=== PATIENT | male | born 1970 | race Caucasian/White ===

== ENCOUNTER 2019-11-24 00:48 | Day surgery (SDC) | payer BC, SELFPAY ==
[2019-11-17 11:38] VITALS: BMI 26.4
--- NOTE | 2019-11-24 07:52 | WPDANESEPPF ---
Anes - Initial Pre Proc Eval Procedure: Operation Date: 11/24/19 09:00 Proposed Procedures p Colonoscopy - Marc Stroud MD Date/Time: 11/24/19 07:52 Surgeon: Marc Stroud MD Pre Op Diagnosis: Rectal pain, Rectal Bleeding Patient Data Age: 49 Gender: M Height: 1.8 m Weight: 86 kg Allergies Allergy/AdvReac Type Severity Reaction Status Date / Time Penicillins Allergy Intermediate HIVES Verified 11/17/19 11:37 Home Medications Medication Instructions Recorded Confirmed Type citalopram 10 mg tablet 10 mg PO DAILY #90 tablet 10/02/19 11/17/19 Rx allopurinol 150 mg PO DAILY 11/17/19 11/17/19 History aspirin 81 mg PO DAILY 11/17/19 11/17/19 History atorvastatin 80 mg PO DAILY 11/17/19 11/17/19 History metoprolol succinate 50 mg PO DAILY 11/17/19 11/17/19 History Patient hx anesthesia problems: none Family hx anesthesia problems: none PMFSH Past Medical History Medical History (Updated 11/24/19 @ 07:55 by Zain Lyle MD) Anxiety CAD (coronary artery disease) Gout HTN (hypertension) Hx of myocardial infarction JANUARY 2015 Hypercholesterolemia Alejandra-Foster tear 2016 Overweight (BMI 25.0-29.9) Surgical History Surgical History (Updated 11/24/19 @ 07:55 by Zain Lyle MD) Hx of coronary artery bypass graft JANUARY 2015 HAD CABG X4 Social History Social History Smoking status: Never smoker Alcohol intake: current Anes - Eval Final PreProcedure Day of Procedure 11/24/19 07:52 Patient weight: overweight Heart: regular rate and rhythm Lungs: clear to auscultation and normal air movement Airway: Mallampati scale class II Neurological: alert and oriented Last oral intake: >/= 8 hours ASA classification: III Emergent: no Anesthetic plan: proceed Anesthesia type and monitoring: general GIVS Informed Consent: The patient's anesthetic plan and its attendant risks and benefits were discussed with the patient/family/POA. Questions were solicited and answers provided to the satisfaction of the patient/family/POA.
[2019-11-24] MEDS: LACTATED RINGERS 1,000 ML 150 ML IV CONT (08:05)
[2019-11-24 08:08] VITALS: BMI 26.6
[2019-11-24 08:09] VITALS: BP 143/88; PULSE 72; RESP 20; TEMP 36.7; O2SAT 98
[2019-11-24 09:06] VITALS: BP 105/68; PULSE 68; RESP 20; O2SAT 98
[2019-11-24 09:16] VITALS: BP 101/66; PULSE 67; RESP 20; O2SAT 98
[2019-11-24 09:26] VITALS: BP 110/75; PULSE 63; RESP 20; O2SAT 98
[2019-11-24 09:36] VITALS: BP 125/68; PULSE 68; RESP 20; O2SAT 100
--- NOTE | 2019-12-08 14:19 | P.CONGI_ITS ---
Assessment and Plan Additional Plan This is a 49-year-old white male patient seen in evaluation at the request of Dr. Frausto. Patient notes rectal irritation over the last 1 year. States it feels sore. His bowel habits are regular. He notes this discomfort at the rectal area rather constantly. He will occasionally notice bright red blood per rectum. He has tried suppositories with no relief of symptoms. Past medical history significant for anxiety, atherosclerotic heart disease, gout, hypertension, hypercholesterolemia, he has previously had a Alejandra-Foster tear. Previous surgery includes coronary artery bypass grafting Social history is significant for routine alcohol intake. Current medications include allopurinol, atorvastatin, citalopram, and metoprolol. Patient reports allergy to penicillins. Physical exam reveals patient to be alert. Vital signs stable. HEENT exam unremarkable. Lungs are clear to auscultation and percussion. Heart is without murmur or extra sounds. Abdominal exam bowel sounds are present soft nontender with no hepatosplenomegaly. Digital external rectal exam is normal. Impression: 1.rectal pain. 2. Rectal bleeding Plan is for colonoscopy to evaluate this more thoroughly. Date of original consultation 11/08/2019 GI Consult Note Consult date/time: 12/08/19 14:19 HPI: Mayito Mejia is a 49 year old male [facility] Past Medical History Medical History (Updated 11/24/19 @ 07:55 by Zain Lyle MD) Anxiety CAD (coronary artery disease) Gout HTN (hypertension) Hx of myocardial infarction JANUARY 2015 Hypercholesterolemia Alejandra-Foster tear 2016 Overweight (BMI 25.0-29.9) Surgical History Surgical History (Updated 11/24/19 @ 07:55 by Zain Lyle MD) Hx of coronary artery bypass graft JANUARY 2015 HAD CABG X4 Social History Social History Smoking status: Never smoker Alcohol intake: current Meds Home Medications and Allergies Home Medications Medication Instructions Recorded Confirmed Type citalopram 10 mg tablet 10 mg PO DAILY #90 tablet 10/02/19 11/24/19 Rx allopurinol 150 mg PO DAILY 11/17/19 11/24/19 History aspirin 81 mg PO DAILY 11/17/19 11/24/19 History atorvastatin 80 mg PO DAILY 11/17/19 11/24/19 History metoprolol succinate 50 mg PO DAILY 11/17/19 11/24/19 History Allergies Allergy/AdvReac Type Severity Reaction Status Date / Time Penicillins Allergy Intermediate HIVES Verified 11/24/19 08:12
== END 2019-11-24 09:48 | disposition home or self-care (01) ==
PROVIDERS: PCP Internal Medicine; Visit Provider Internal Medicine Gastroenterology
PROC: 0DJD8ZZ Inspection of Lower Intestinal Tract, Via Natural or Artificial Opening Endoscopic (ICD-10-PCS; CPT 45378; principal; 2019-11-24 09:00)
DX: K52.9 Noninfective gastroenteritis and colitis, unspecified (principal); D12.4 Benign neoplasm of descending colon; K64.8 Other hemorrhoids; I10 Essential (primary) hypertension; I25.10 Atherosclerotic heart disease of native coronary artery without angina pectoris; I25.2 Old myocardial infarction; E78.00 Pure hypercholesterolemia, unspecified; M10.9 Gout, unspecified; F41.9 Anxiety disorder, unspecified; Z95.1 Presence of aortocoronary bypass graft; Z79.82 Long term (current) use of aspirin
CPT/HCPCS: 45385; 45380; 88305; J2704; J7120

== ENCOUNTER 2022-06-19 13:32 | Outpatient (CLI) | payer BC, SELFPAY ==
--- NOTE | ~2022-06-19 | XR_ITS ---
EXAMINATION:XR cervical spine 4-5V DATE: 06/19/2022 13:55 INDICATION: Neck pain TECHNIQUE: AP, lateral, lateral swimmers and odontoid views of the cervical spine are provided. COMPARISON: None FINDINGS: There are 2 mm of retrolisthesis of C5 on C6. The odontoid is intact. No fracture is identi fied. The vertebral body heights are normal. There is mild loss of intervertebral disc space height a t C5-6. Small degenerative osteophytes project from the anterior endplates of multiple vertebral bodi es. There is moderate multilevel facet and uncovertebral joint osteoarthritis. Median sternotomy wire s and mediastinal surgical clips are seen, likely from prior coronary artery bypass grafting. Prevert ebral soft tissues are normal. IMPRESSION: 1. Mild cervical spondylosis without acute findings. Reviewed, dictated and finalized at location A.
== END 2022-06-19 13:33 | disposition home or self-care (01) ==
PROVIDERS: PCP Internal Medicine; Visit Provider Physician Assistant
DX: M47.892 Other spondylosis, cervical region (principal)
CPT/HCPCS: 72050

== ENCOUNTER 2022-07-10 05:16 | Emergency (ER) | payer BC, SELFPAY ==
[2022-07-10] VITALS (14 sets, daily range): BP systolic 115–148; BP diastolic 74–88; PULSE 65–76; RESP 14–20; TEMP 36.3; O2SAT 95–100
--- NOTE | ~2022-07-10 | XR_ITS ---
EXAMINATION: XR chest 2V DATE: 07/10/2022 06:05 INDICATION: Shortness of breath. Left axillary rib pain. TECHNIQUE: PA and lateral views of the chest were obtained. COMPARISON: Chest radiograph dated 10/30/2016 FINDINGS: The lungs are clear with no focal airspace opacities, pulmonary edema, pleural effusion or pneumothor ax. The cardiomediastinal silhouette is normal. Median sternotomy wires, ostial markers and mediastin al surgical clips consistent with prior coronary artery bypass grafting. IMPRESSION: 1. No acute cardiopulmonary disease. Reviewed, dictated and finalized at location A.
--- NOTE | 2022-07-10 05:21 | ECG_ITS ---
Measurements Intervals [place] Rate: 70 P: 28 NM: 166 QRS: 0 QRSD: 84 T: 82 QT: 372 QTc: 403 Interpretive Statements SINUS RHYTHM NONSPECIFIC T-WAVE ABNORMALITY NO PREVIOUS ECG AVAILABLE FOR COMPARISON Electronically Signed On 07-10-2022 14:01:47 CDT by Gab Francois M.D.
--- NOTE | 2022-07-10 05:37 | ED.CHESTPAIN ---
HPI - Chest Pain General Chief Complaint: Shortness of Breath/Dyspnea <Dann Evans MD - Last Filed: 07/10/22 06:51> Stated Complaint: SHORTNESS OF BREATH <Dann Evans MD - Last Filed: 07/10/22 06:51> Time Seen by Provider: 07/10/22 05:26 <Dann Evans MD - Last Filed: 07/10/22 06:51> History of Present Illness HPI narrative: This is a 51-year-old male with history of coronary artery disease status post CABG, who presents emergency department with left-sided chest pain for the past several hours. Patient notes he was working on a concrete floor throughout the day, when he stood he noticed left-sided sharp chest pain. Pain is rated 6 out of 10, worsened with direct pressure, cough for life. Patient denies associated nausea vomiting or diaphoresis. He states his pain is different from a previous heart attack. <Dann Evans MD - Last Filed: 07/10/22 06:51> Related Data Home Medications: Home Medications Medication Instructions Recorded Confirmed aspirin 81 mg chewable tablet 81 mg PO DAILY 11/17/19 06/29/22 atorvastatin 80 mg tablet 80 mg PO DAILY 11/17/19 06/29/22 metoprolol succinate 50 mg 50 mg PO DAILY 11/17/19 06/29/22 tablet,extended release 24 hr ezetimibe 10 mg tablet (Zetia) 10 mg PO DAILY 10/21/20 06/29/22 <Dann Evans MD - Last Filed: 07/10/22 06:51> Allergies/Adverse Reactions: Allergies Allergy/AdvReac Type Severity Reaction Status Date / Time Penicillins Allergy Intermediate HIVES Verified 07/10/22 05:25 <Dann Evans MD - Last Filed: 07/10/22 06:51> Review of Systems Review of Systems: CONSTITUTIONAL: Denies fever, chills, or sweats. EYES: Denies visual changes, redness, or discharge. ENT: Denies rhinorrhea, congestion, sore throat, or otalgia. CARDIOVASCULAR: Chest pain denies palpitations, or edema. RESPIRATORY: Denies cough or dyspnea. GASTROINTESTINAL: Denies abdominal pain, nausea, vomiting, or diarrhea. GENITOURINARY: Denies dysuria or hematuria. SKIN: Denies rash or itching. MUSCULOSKELETAL: Denies back pain, joint pain, or myalgia. NEUROLOGIC: Denies headache, numbness, dizziness, or weakness. PSYCHIATRIC: Denies anxiety or depression. <Dann Evans MD - Last Filed: 07/10/22 06:51> PMFSH Past Medical History Medical History: Medical History Anxiety Bone spur CAD (coronary artery disease) Gout HTN (hypertension) Hx of myocardial infarction JANUARY 2015 Hypercholesterolemia Alejandra-Foster tear 2016 Overweight (BMI 25.0-29.9) <Dann Evans MD - Last Filed: 07/10/22 06:51> Surgical History Surgical History: Surgical History H/O arthroscopy of left knee 1987 & 1992 H/O shoulder surgery right shoulder, Dr. Soares, 2009? 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 HEAD: Normocephalic, atraumatic. EYES: PERRLA and EOMI. ENT: Nares clear, no rhinorrhea or epistaxis. Mucous membranes moist. Oropharynx without ton
[2022-07-10 05:56] LABS: Basophils Percent Auto 0.4 % (0.2-1.2); Eosinophils Absolute Auto 0.1 K/mm3 (0-0.3); Eosinophils Percent Auto 2.5 % (0-4.4); Hematocrit 42.7 % (42.0-52.0); Hemoglobin 14.4 g/dL (14.0-18.0); Immature Granulocyte Absolute 0.01 K/mm3 (0.00-0.031); Immature Granulocyte Percent A 0.2 % (0-0.5); Lymphocytes Absolute Auto 1.35 K/mm3 (0.9-3.2); Mean Corpuscular HGB Conc 33.7 g/dl (32-36); Mean Corpuscular Hemoglobin 33.2 pg (26-34); Mean Corpuscular Volume 98.4 fl (80-100); Monocytes Absolute Auto 0.5 K/mm3 (0.1-0.6); Neutrophils Absolute Auto 3.7 K/mm3 (1.3-6.7); Neutrophils Percent Auto 64.9 % (45.5-73.1); Platelet Count Result 189 k/mm3 (150-375); Red Blood Count 4.34 M/mm3 (4.6-6.20); Red Cell Distribution Width 12.1 % (11.5-14.5); White Blood Count 5.6 K/mm3 (4.5-10.0)
[2022-07-10 05:59] LABS: Alanine Aminotransferase 50 U/L (6-50); Albumin Level 3.9 g/dL (3.5-5.1); Alkaline Phosphatase 58 U/L (38-126); Anion Gap 9 mmol/L (8-16); Aspartate Amino Transferase 42 U/L (17-59); Bilirubin,Total 0.8 mg/dL (0.2-1.3); Blood Urea Nitrogen 14 mg/dL (9-20); Calcium 8.6 mg/dL (8.4-10.2); Carbon Dioxide 27 mmol/L (22-30); Chloride 104 mmol/L (98-107); Estimated CRCL calculation 72 ml/min; Estimated Glomerular Filt Rate > 60; Glucose 134 mg/dL (65-110); Potassium 4.1 mmol/L (3.4-5.0); Sodium 140 mmol/L (137-145)
[2022-07-10 06:15] LABS: Troponin I < 0.012 ng/mL (0.000-0.034)
--- NOTE | 2022-07-10 07:11 | PC.NURSE ---
REPORT RECEIVED FROM ALICE MCGUIRE AND CARE OF PT ASSUMED AT THIS TIME.
[2022-07-10 08:56] LABS: Troponin I < 0.012 ng/mL (0.000-0.034)
== END 2022-07-10 09:17 | disposition home or self-care (01) ==
PROVIDERS: Emergency Provider Preventive Medicine Aerospace Medicine; PCP Internal Medicine
DX: R07.9 Chest pain, unspecified (principal); I25.10 Atherosclerotic heart disease of native coronary artery without angina pectoris; I10 Essential (primary) hypertension; I25.2 Old myocardial infarction; E78.00 Pure hypercholesterolemia, unspecified; M10.9 Gout, unspecified; E66.3 Overweight; Z68.29 Body mass index [BMI] 29.0-29.9, adult; Z95.1 Presence of aortocoronary bypass graft; Z79.82 Long term (current) use of aspirin; R94.31 Abnormal electrocardiogram [ECG] [EKG]
CPT/HCPCS: 36415; 71046; 80053; 84484; 85025; 93005; 99284

== ENCOUNTER 2022-07-20 16:00 | Outpatient (RCR) | payer BC, SELFPAY ==
--- NOTE | 2022-07-16 17:18 | PTOPEVAL1 ---
Assessment and note entered by Michael Shi, PT Evaluation Information Assessment Status Evaluation Diagnosis spodylosis w/o myelopathy or radiculopathy of the neck Subjective Information Patient reports he feels pain and a catch when moving his neck. He reports he spends a lot of time at his desk with bad posture. He would like to strengthen his neck before it progresses to any radiating symptoms. Reported Pain Level Pain Score 2: Self Report Assessment PT Clinical Summary Clovis is a 51 year old male coming into the clinic today with non-radiating neck pain more on the L than R. He has had 2 prior rotator cuff injuries requiring surgeries both on the R UE. Patient has good cervical range of motion besides L lateral flexion. Has tight pecs and and weak scapular muscles resulting in rounded shoulders and forward head. Patient could benefit from skilled physical therapy to work on stretching out the pecs and strengthening the back to improve posture along with education on prolonged position at work to take stress off muscles in the neck. Plan of Care Interventions Electrical Stimulation,Hot Pack/Cold Pack,Manual Therapy,Mechanical Traction,Neuro Re-education, Patient/Caregiver Education,Therapeutic Activities, Therapeutic Exercise,Ultrasound PT Services Indicated Yes Treatment Frequency and 1x/wk for 4 weeks Duration These treatments will address the objective and functional deficits as defined above. The patient will be advanced safely and appropriately in order for the patient to progress towards his/her prior level of function. Additional exercises will be introduced and as well as a comprehensive home exercise program upon discharge, if needed, ?to ensure carryover of functional gains achieved in the clinic. This treatment plan has been reviewed and agreement upon by the patient.
--- NOTE | 2022-07-29 10:08 | PTOPDC ---
Assessment and note entered by Michael Shi, PT Evaluation Information Assessment Status Evaluation Diagnosis spodylosis w/o myelopathy or radiculopathy of the neck Subjective Information Patient attended 1 session after initial evaluation where he was given an HEP and educated on importance of posture at work Patient called into the bowling or skating front desk clerk to cancel all other scheduled visits stating he is doing good.
== END 2022-07-29 13:48 | disposition home or self-care (01) ==
LOC: ANHPT 16:00
PROVIDERS: PCP Internal Medicine; Visit Provider Physician Assistant
DX: M47.812 Spondylosis without myelopathy or radiculopathy, cervical region (principal)
CPT/HCPCS: 97110; 97112; 97161

== ENCOUNTER 2024-11-01 12:27 | Outpatient (CLI) | payer BC, SELFPAY ==
--- NOTE | ~2024-11-01 | XR_ITS ---
EXAMINATION: XR shoulder LT min 2V DATE: 11/01/2024 12:50 INDICATION: Left shoulder pain. TECHNIQUE: 5 views of left shoulder were obtained. COMPARISON: None. FINDINGS: Alignment is normal. No fracture. There is mild osteoarthritis of glenohumeral joint and ac romioclavicular joint. Median sternotomy wires and mediastinal surgical clips are seen, likely from p rior coronary artery bypass grafting. IMPRESSION: 1. Mild polyarticular osteoarthritis. Reviewed, dictated and finalized at location A. PRESIDENT COMPLIANCE
--- OUTSIDE RECORDS SUMMARY | 2024-11-01 12:31 | XMS_ITS | Referral Summary ---
Author Organization [facility] Address [address] [place] [address] Care Team Providers Care Patrol Judge Name Role Phone Estevan Petersen DO Primary Care Provider [phone] Allergies Active Allergy Reactions Criticality Noted Date Comments Penicillins Rash Medium Medications aspirin 81 mg tablet Take 1 tablet (81 mg total) by mouth daily Active omeprazole (PriLOSEC) 20 mg capsule Take 1 capsule (20 mg total) by mouth daily 3 Active ezetimibe (ZETIA) 10 mg tablet TAKE 1 TABLET BY MOUTH ONCE DAILY 180 tablet 3 3 Active atorvastatin (LIPITOR) 80 mg tablet TAKE 1 TABLET(80 MG) BY MOUTH DAILY 90 tablet 3 4 Active lisinopriL (PRINIVIL,ZESTRIL ) 5 mg tabletIndications :Essential hypertension Take 2 tablets (10 mg total) by mouth daily 60 tablet 3 4 Active metoprolol XL (TOPROL-XL) 50 mg extended release tablet TAKE 1 TABLET(50 MG) BY MOUTH DAILY 90 tablet 3 4 Active tadalafiL (CIALIS) 20 mg tablet TAKE 1 TABLET BY MOUTH AN HOUR BEFORE SEX NEEDED. DO NOT TAKE MORE THAN ONE TIME IN 48 HOURS. THIS IS NOT A DAILY MEDICATION 4 Active ibuprofen 200 mg tab/cap Take 4 tablet/capsule (800 mg total) by mouth every 6 (six) hours as needed for pain Active methocarbamoL (ROBAXIN) 500 mg tablet Take 1 tablet (500 mg total) by mouth 3 (three) times a day as needed for muscle spasms 30 tablet 1 4 Active Active Problems Problem Noted Date Diagnosed Date Essential hypertension 12/08/2023 Coronary artery disease invo lving [place] coronary artery of [place] heart without angina pectoris 02/24/2017 Musculoskeletal chest pain 02/24/2017 Family history of ischemic heart disease 017 History of coronary artery bypass surgery 2014 Overview (12/25/2016): S/P CABG x 4 Chronic coronary artery disease 03/12/2015 Social History Tobacco Use Types Packs/Day Years Used Date Smoking Tobacco: Never Smokeless Tobacco: Never Tobacco Cessation:Counseling Given: Not Answered Alcohol Use Standard Drinks/Week Comments Yes 0 (1 standard drink = 0.6 oz pur e alcohol) Personal Safety Answer Date Recorded Getting School Help Needed Not on file 09/23 Sex and Gender Information Value Date Recorded Sex Assigned at Not on file 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 Gender Identity Not on file Sexual Orientation Not on file Last Filed Vital Signs Vital Sign Reading Time Taken Comments Blood Pressure 128/80 04/05/2024 8:45 AM CDT Pulse 79 04/05/2024 8:45 AM CDT Temperature 36.8 C (98.3 F) 09/19/2022 9:25 AM ROLLER 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 CUTTING 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
--- OUTSIDE RECORDS SUMMARY | 2024-11-01 12:31 | XMS_ITS | Clinical Summary ---
Author Organization [facility] Address [address] [place] [address] Care Team Providers Care [employer] Paraprofessional Name Role Phone Estevan Petersen DO Primary Care Provider [phone] Allergies Active Allergy Reactions Criticality Noted Date [...] needed for muscle spasms 30 tablet 1 Active Active Problems Problem Noted Date Diagnosed Date Essential hypertension 12/08/2023 Coronary artery disease invo lving [place] coronary artery of [place] heart without angina pectoris 02/24/2017 Musculoskeletal chest pain 02/24/2017 Family history of ischemic heart disease 017 History of coronary artery bypass surgery 2014 Overview (12/25/2016): S/P CABG x 4 Chronic coronary artery disease 03/12/2015 Medical History Medical History Date Comments Ischemic heart disease Ischemic heart disease Chronic coronary artery disease Coronary artery disease Acute non-ST elevation myoca rdial infarction (NSTEMI) (CMS/HCC) (HCC) Acute non-ST segme nt elevation myocardial infarcti Hx Other Medical HLP Hx Other Medical CABGX4 Hx Other Medical left knee surge ry, right shoulder surgery, sinus s Family History Medical History Relation Name Comments Heart attack Father Myocardial infa rction; Stroke Father Stroke; Hyperlipidemia Mother Hyperlipidemi a; Hypertension Mother Hypertension; Other Other Family history of Diabetes mellitus type 1; Relation Name Status Comments Father Mother Other Social History Tobacco Use Types Packs/Day Years [...] on file 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 Gender Identity Not on file Sexual Orientation Not on file Obstetrics History Last Filed Vital Signs Vital Sign Reading Time Taken Comments Blood Pressure 128/80 04/05/2024 8:45 AM CDT Pulse 79 04/05/2024 8:45 AM CDT Temperature 36.8 C (98.3 F) 09/19/2022 9:25 AM INTERIOR DESIGN PROFESSOR Respiratory Rate 18 09/19/2022 9:25 AM INTERIOR DESIGN PROFESSOR Oxygen Saturation 98% 04/05/2024 8:45 AM CDT Inhaled Oxygen Concentration - - Weight 85.3 kg (188 lb) 06/08/2024 3:33 PM CDT Height 180.3 cm (5' 11 ) 06/08/2024 3:33 PM CDT Body Mass Index 26.22 06/08/2024 3:33 PM CDT Plan of Treatment Health Maintenance Due Date Last Done Comments Colon Cancer Screening-Colonoscopy 1971 Depression Screening 1971 Hepatitis C Screening 1971 Prostate Cancer Screening-PSA 1971 Pneumococcal vaccine <65 (1 of 2 - PCV) 1977 Hepatitis B Screening 1989 Regular Well Visit/Exam 18-64 1989 DTaP/Tdap/Td Vaccine (1 - Tdap) 05/13/2005 5 Zoster Vaccine (1 of 2) 2021 Influenza Vaccine (#1) 2024 07/07/2020, 2015 Insurance Accupal ACCESS Accupal ACCESS Care Teams Innovations Paraprofessional Relationship Specialty Start Date End Date Estevan Petersen DO [address] [facility] [address] [place] [address] PCP - General Internal Medicine 06/08/24
== END 2024-11-01 12:28 | disposition home or self-care (01) ==
PROVIDERS: PCP Internal Medicine; Visit Provider Orthopaedic Surgery
DX: M19.012 Primary osteoarthritis, left shoulder (principal)
CPT/HCPCS: 73030